=== PATIENT | male | born 1955 | race Hispanic/Latino ===

== ENCOUNTER 2018-01-20 09:48 | Emergency (ER) | payer OTHER ==
[~2018-01-20] VITALS: Ht 160 cm; Wt 81.6 kg
[2018-01-20] MEDS ORDERED: SODIUM CHLORIDE 0.9% 1000ML 1,000 ML IV STA (09:58)
[2018-01-20] MEDS ORDERED: ONDANSETRON HCL INJ 2 MG/ML VIAL IV STA (09:58)
[2018-01-20] MEDS ORDERED: CLONIDINE HCL 0.1 MG TAB PO ONE (10:15)
[2018-01-20 10:21] LABS: BASOPHILS # (AUTO) 0.1 (0.0-0.1); BASOPHILS % 1.3 % (0.0-1.0); EOSINOPHILS # (AUTO) 0.1 (0.0-0.4); EOSINOPHILS % 1.2 % (0.0-6.0); HEMATOCRIT 48.9 % (38.2-49.6); HEMOGLOBIN 17.1 g/dL (14.0-18.0); LYMPHOCYTES # (AUTO) 1.7 (1.0-3.2); MEAN CORPUSCULAR HEMOGLOBIN 30.1 pg (28-32); MEAN CORPUSCULAR VOLUME 85.9 fL (81-99); MONOCYTES # (AUTO) 0.7 (0.2-0.8); MONOCYTES % 8.3 % (4.4-11.3); NEUTROPHILS # (AUTO) 5.8 (2.1-6.9); NEUTROPHILS % 68.5 % (38.7-80.0); PLATELET COUNT 322 x10e3/uL (140-360); RED BLOOD COUNT 5.69 x10e6/uL (4.3-5.7); RED CELL DISTRIBUTION WIDTH 12.8 % (11.7-14.4)
[2018-01-20 10:38] LABS: ALBUMIN/GLOBULIN RATIO 0.9 (0.8-2.0); ANION GAP 12.3 mmol/L (8-16); CALCIUM 9.4 mg/dL (8.4-10.2); CREATININE, SERUM 1.8 mg/dL (0.72-1.25); POTASSIUM 4.3 mmol/L (3.5-5.1)
[2018-01-20 10:45] LABS: CLARITY,URINE SL CLOUDY (CLEAR); COLOR,URINE YELLOW (YELLOW)
[2018-01-20 10:46] LABS: BILIRUBIN,URINE NEGATIVE (NEGATIVE); KETONES,URINE NEGATIVE (NEGATIVE); LEUKOCYTE ESTERASE ,URINE NEGATIVE (NEGATIVE); NITRITE,URINE NEGATIVE (NEGATIVE); PROTEIN,URINE DIPSTICK 3+ (NEGATIVE); URINE UROBILINOGEN 0.2 mg/dL (0.2 - 1)
[2018-01-20 10:51] LABS: AMORPHOUS SEDIMENT,URINE RARE (FEW)
[2018-01-20 10:53] LABS: BACTERIA,URINE RARE /HPF; EPITHELIAL CELLS,URINE RARE /LPF; RBC,URINE 0-5 /HPF (0-5)
--- NOTE | 2018-01-20 13:59 | Diagnostic Imaging Report ---
PROCEDURE:US GALLBLADDER COMPARISON:None. INDICATIONS:ABDOMEN PAIN TECHNIQUE: Leiva-scale and color doppler transverse and longitudinal images of the right upper quadrant of the abdomen were obtained. FINDINGS: Exam limited by overlying bowel gas. Liver: 15.0 cm in right mid-clavicular line. Increased echogenicity. No masses. Main portal vein: 1.1 cm, hepatopetal flow Gallbladder: Echogenic, mobile material is noted in the gallbladder lumen, which does not show posterior acoustic shadowing, likely representing a small amount of sludge.. No wall thickening, or pericholecystic fluid. Common Bile Duct: Obscured by overlying bowel gas Sonographic Morrissey's sign: Negative Right kidney: Obscured by overlying bowel gas. Pancreas: Visualized portions of the neck and proximal body are unremarkable. Inferior vena cava: Obscured by overlying bowel gas Aorta: Obscured by overlying bowel gas Ascites: None in the right upper quadrant of the abdomen. CONCLUSION: 1. Exam limited by overlying bowel gas. 2. Findings in the gallbladder likely represents small amount of sludge. No definite echogenic stones are identified. No sonographic evidence of acute cholecystitis. 3. Diffuse hepatic steatosis. No focal lesions. Lamine Starks M.D. Dictated by: Lamien Starks M.D. on 01/20/2018 at 13:59 Electronically approved by: Lamine Starks M.D. on 01/20/2018 at 13:59
== END 2018-01-20 14:50 | disposition home or self-care (01) ==
LOC: ER 09:48
DX: K52.9 Noninfective gastroenteritis and colitis, unspecified (principal); R11.2 Nausea with vomiting, unspecified; R19.7 Diarrhea, unspecified
CPT/HCPCS: 36415; 76705; 80053; 81001; 83690; 85025; 93005; 99284; J2405; J7030

== ENCOUNTER 2018-07-10 14:41 | Observation (INO) | payer OTHER ==
[~2018-07-10] VITALS: Ht 160 cm; Wt 68.9 kg
[2018-07-10 15:36] LABS: BASOPHILS # (AUTO) 0.1 (0.0-0.1); EOSINOPHILS % 0.3 % (0.0-6.0); HEMATOCRIT 45.9 % (38.2-49.6); HEMOGLOBIN 16.1 g/dL (14.0-18.0); LYMPHOCYTES # (AUTO) 1.3 (1.0-3.2); LYMPHOCYTES % 11.9 % (18.0-39.1); MEAN CORPUSCULAR HEMOGLOBIN 30.3 pg (28-32); MEAN CORPUSCULAR HGB CONC 35.1 g/dL (31-35); MEAN CORPUSCULAR VOLUME 86.3 fL (81-99); MONOCYTES # (AUTO) 0.6 (0.2-0.8); MONOCYTES % 5.3 % (4.4-11.3); NEUTROPHILS # (AUTO) 8.6 (2.1-6.9); NEUTROPHILS % 80.8 % (38.7-80.0); PLATELET COUNT 313 x10e3/uL (140-360); RED BLOOD COUNT 5.32 x10e6/uL (4.3-5.7); RED CELL DISTRIBUTION WIDTH 12.3 % (11.7-14.4)
[2018-07-10 15:54] LABS: ALBUMIN/GLOBULIN RATIO 0.9 (0.8-2.0); ANION GAP 19.7 mmol/L (8-16); CALCIUM 9.8 mg/dL (8.4-10.2); CREATININE, SERUM 2.74 mg/dL (0.72-1.25); POTASSIUM 4.7 mmol/L (3.5-5.1)
[2018-07-10 16:00] LABS: CREATINE KINASE MB 2.7 ng/mL (0-5.0); INR 0.93; PROTHROMBIN TIME 13.3 seconds (11.9-14.5)
[2018-07-10 16:01] LABS: PARTIAL THROMBOPLASTIN TIME 26.7 seconds (23.8-35.5)
--- NOTE | 2018-07-10 16:03 | Diagnostic Imaging Report ---
Examination: Single AP view of the chest. COMPARISON: None. INDICATION: Chest pain DISCUSSION: Lines/tubes: None. Lungs: The lungs are well inflated and clear. No pneumonia or pulmonary edema. Pleura: No pleural effusion or pneumothorax. Heart and mediastinum: The heart and the mediastinum are unremarkable. Bones and soft tissues: No acute bony abnormalities. IMPRESSION: 1. No acute cardiopulmonary abnormalities. Signed by: Dr. Faustino Wright M.D. on 07/10/2018 4:00 PM
--- NOTE | 2018-07-10 16:08 | Diagnostic Imaging Report ---
EXAMINATION: Head CT HISTORY: Dizziness chest pain COMPARISON: None. TECHNIQUE: Multidetector axial images were obtained without contrast from the foramen magnum to the vertex . The images were reconstructed using brain and bone algorithms. Thin section brain images were reformatted into coronal and sagittal planes. Image quality: Motion/streaking artifact limits the evaluation of the skull base and posterior cranial fossa. Dose modulation, iterative reconstruction, and/or weight based adjustment of the mA/kV was utilized to reduce the radiation dose to as low as reasonably achievable. FINDINGS: Parenchyma: 1. Few scattered white matter hypodensities, most likely nonspecific chronic microvascular ischemic changes. Focal prominent hypodensity in the left frontal deep white matter represents an age indeterminate lacunar infarct. 2. Additional small age indeterminate likely chronic lacunar infarcts are seen in the genu of the left internal capsule and bilateral putamen. 3. No mass or hemorrhage. No CT evidence of acute territorial vascular insult. Extra-axial spaces:No abnormal density. No extra-axial fluid collections Brain volume: Normal for age. Ventricles: No hydrocephalus or displacement. Arteries: No density suggestive of thrombus. Dural sinuses: No abnormal density. Extra-axial spaces: No abnormal density. Foramen magnum: No mass, Chiari malformation, or basilar invagination. Sella: No obvious mass. Paranasal/mastoid sinuses: Hypo pneumatization, sclerosis and opacification of the right middle ear and mastoid air cells, likely the sequela from chronic inflammatory process. Otherwise clear. Skull/Scalp: No lytic or blastic lesions. No fractures. IMPRESSION: 1. No acute intracranial hemorrhage. 2. Age indeterminate left frontal lacunar infarct. 3. Mild chronic microvascular ischemic changes and small chronic lacunar infarcts as detailed above. Signed by: Dr. Lesly Brasher M.D. on 07/10/2018 4:04 PM
[2018-07-10] MEDS ORDERED: SODIUM CHLORIDE 0.9% 1000ML 1,000 ML ONE (16:09)
[2018-07-10] MEDS ORDERED: INSULIN REGULAR, HUMAN 100 UNIT/1 ML 3ML VIAL IV ONE (16:15)
[2018-07-10] MEDS ORDERED: SODIUM CHLORIDE 0.9% 1000ML 1,000 ML IV ONE (16:15)
[2018-07-10 17:25] LABS: BILIRUBIN,URINE NEGATIVE (NEGATIVE); CLARITY,URINE SL CLOUDY (CLEAR); COLOR,URINE YELLOW (YELLOW); KETONES,URINE NEGATIVE (NEGATIVE); LEUKOCYTE ESTERASE ,URINE NEGATIVE (NEGATIVE); NITRITE,URINE NEGATIVE (NEGATIVE); PROTEIN,URINE DIPSTICK TRACE (NEGATIVE); URINE UROBILINOGEN 0.2 mg/dL (0.2 - 1)
[2018-07-10] MEDS ORDERED: SODIUM CHLORIDE FLUSH 10 ML SYR INJ PRN (19:45)
[2018-07-10] MEDS ORDERED: DEXTROSE 50% SYRINGE 50 ML IV PRN (19:45)
[2018-07-10] MEDS ORDERED: ONDANSETRON HCL INJ 2 MG/ML VIAL IV PRN (19:45)
[2018-07-10] MEDS ORDERED: SODIUM CHLORIDE 0.9% 1000ML 1,000 ML IV SCH (19:45)
[2018-07-10 20:30] VITALS: BP 163/99
[2018-07-10 20:45] VITALS: BP 163/99
[2018-07-10 20:57] VITALS: BP 163/99
[2018-07-10] MEDS: FAMOTIDINE 20 MG/2 ML VIAL IV SCH (22:07)
[2018-07-10] MEDS: INSULIN REGULAR, HUMAN 100 UNIT/1 ML 3ML VIAL SQ SCH (22:16)
[2018-07-11] VITALS: BP 151/88
[2018-07-11 04:00] VITALS: BP 157/97
[2018-07-11 05:28] LABS: BASOPHILS # (AUTO) 0.1 (0.0-0.1); BASOPHILS % 1.4 % (0.0-1.0); EOSINOPHILS # (AUTO) 0.2 (0.0-0.4); EOSINOPHILS % 2.1 % (0.0-6.0); HEMATOCRIT 40.1 % (38.2-49.6); LYMPHOCYTES # (AUTO) 2.4 (1.0-3.2); LYMPHOCYTES % 30.8 % (18.0-39.1); MEAN CORPUSCULAR HEMOGLOBIN 30.8 pg (28-32); MEAN CORPUSCULAR HGB CONC 34.9 g/dL (31-35); MEAN CORPUSCULAR VOLUME 88.1 fL (81-99); MONOCYTES # (AUTO) 0.7 (0.2-0.8); MONOCYTES % 9.4 % (4.4-11.3); NEUTROPHILS # (AUTO) 4.3 (2.1-6.9); NEUTROPHILS % 55.7 % (38.7-80.0); PLATELET COUNT 256 x10e3/uL (140-360); RED BLOOD COUNT 4.55 x10e6/uL (4.3-5.7); RED CELL DISTRIBUTION WIDTH 12.5 % (11.7-14.4)
[2018-07-11 06:08] LABS: ALANINE AMINOTRANSFERASE 21 IU/L (0-55); ALBUMIN 3.2 g/dL (3.5-5.0); ALBUMIN/GLOBULIN RATIO 0.9 (0.8-2.0); ALKALINE PHOSPHATASE 72 IU/L (40-150); ANION GAP 14.9 mmol/L (8-16); BLOOD UREA NITROGEN 23 mg/dL (7-26); BUN/CREATININE RATIO 13 (6-25); CALCIUM 8.8 mg/dL (8.4-10.2); CARBON DIOXIDE 23 mmol/L (22-29); CHLORIDE 105 mmol/L (98-107); CHOL/HDL RATIO 8.4 (3.9-4.7); CHOLESTEROL 226 MD/DL (0-199); CREATINE KINASE 185 IU/L (30-200); EST GLOMERULAR FILTRATION RATE 38 ML/MIN (60-); GLUCOSE 177 mg/dL (74-118); HDL CHOLESTEROL 27 MG/DL (40-60); POTASSIUM 3.9 mmol/L (3.5-5.1); SODIUM 139 mmol/L (136-145); TRIGLYCERIDES 599 MG/DL (0-149)
[2018-07-11] MEDS: INSULIN REGULAR, HUMAN 100 UNIT/1 ML 3ML VIAL SQ SCH ×2 (07:30→12:02)
[2018-07-11 07:32] VITALS: BP 188/107
[2018-07-11] MEDS ORDERED: HYDRALAZINE HCL 20 MG/ML VIAL IV PRN (08:00)
[2018-07-11] MEDS: FAMOTIDINE 20 MG/2 ML VIAL IV SCH (08:21)
--- NOTE | 2018-07-11 08:38 | Consultation ---
DATE OF CONSULTATION: July 10, 2018 CARDIOLOGY CONSULTATION REASON FOR CONSULTATION: Chest pain. CONSULTING PHYSICIAN: Dr. Anderson HPI: This is a 63-year-old male that presented with chest pain. According to the patient, for the last 2 days he has been having chest pain that felt like tightness on a scale of 4/10 located at the center of his chest. He stated that the pain comes and goes, but got worse yesterday accompanied with shortness of breath that he decided to come into the emergency room for evaluation. He stated for the last 10 years he was diagnosed with hypertension and diabetes. He finished the medication that was prescribed for him for 90 days, and stopped taking it then. He stated for the last 10 years he has been using [id number] garlic to treat his diabetes. He denied any palpitations, any headache, any diaphoresis. Troponin times 3 was negative. EKG showed normal sinus rhythm with no S/T abnormalities. He also stated he smoked 1-1/2 packs of cigarettes daily. PAST MEDICAL HISTORY: Diabetes and hypertension, and ulcerative colitis. FAMILY HISTORY: Positive for CAD. SOCIAL HISTORY: He lives at home with the . No drinking. Smokes 1-1/2 packs of cigarettes daily. MEDICATIONS: He was on garlic over the counter. ALLERGIES: HE IS NOT ALLERGIC TO ANY MEDICATIONS. REVIEW OF SYSTEMS: Negative except as mentioned above. PHYSICAL EXAMINATION VITAL SIGNS: Temperature 97, heart rate 74, blood pressure 188/107, respirations 18, oxygen saturation 99% on room air. GENERAL: He is awake, alert and oriented times 3. HEENT: Mucous membranes moist. NECK: Supple. LUNGS: Bilateral clear to auscultation. CARDIOVASCULAR: S1 and S2 present. ABDOMEN: Soft. NEUROLOGICAL: Intact. EXTREMITIES: With no edema. LABS: Sodium 139, potassium 3.9, chloride 105, CO2 23, BUN 23, creatinine 1.8, glucose 724. White blood cells 7.72, hemoglobin 14, hematocrit 40.1, and platelets 256,000. PT 13.3, PTT 26.7 and INR 0.93. IMPRESSION 1. Chest pain. 2. Diabetes. 3. Hypertension. 4. Tobacco abuse. 5. Acute renal insufficiency. ASSESSMENT AND PLAN 1. On admission, his blood sugar was 724. Could be the reason why he was having the chest pain. 2. His troponin times 3 was negative. 3. Will go ahead and get an echocardiogram to assess the LV and the valve function. 4. Will check lipid panel. Will start him on low-dose statin and beta saul. 5. Consult on tobacco cessation. Possible outpatient stress test if the symptoms continue. 6. Will go ahead and avoid DOMINICK inhibitor due to the acute renal insufficiency. Further cardiac workup pending clinical course. Thank you for this consultation. DICTATED BY FELICITAS FISCHER NP Job#: [id number] AVINASH
[2018-07-11] MEDS ORDERED: METOPROLOL TARTRATE 25 MG TAB PO SCH (09:00)
[2018-07-11] MEDS ORDERED: ASPIRIN 81 MG ENTERIC COATED PO SCH (09:00)
--- NOTE | 2018-07-11 09:14 | Discharge Summary ---
PCP: Dr. Connor Pizano DISCHARGE MEDICATIONS 1. Nifedipine XL 30 mg daily. 2. Losartan 25 mg daily. 3. Pravastatin 20 mg at bedtime. 4. Glucotrol XL 5 mg daily. 5. Treshiba FlexTouch pen 100 units and 30 units subcutaneous at bedtime. Flex needles, glucometer, test strips, and lancets. Patient is a 63-year-old male who has not seen his family doctor for many years came in with high blood sugar and polyuria causing some dehydration. Patient is otherwise stable. Chest pain is asymptomatic now. He was seen by Dr. Shaikh. Echocardiogram is done, but he will have a stress test output. He will go home today. Color Dipper consultation for diabetic education, insulin education as well. Patient will be discharged today with the above medications. Job#: [id number] AVINASH
[2018-07-11] MEDS ORDERED: NIFEDIPINE ER30 M1 PO (09:28)
[2018-07-11] MEDS ORDERED: LOSARTAN POTASS25 MG PO (09:29)
[2018-07-11] MEDS ORDERED: PRAVASTATIN SOD20 MG PO (09:30)
[2018-07-11] MEDS ORDERED: GLUCOTROL XL10 MG PO (09:30)
[2018-07-11] MEDS ORDERED: ASPIR 8181 MG PO (09:33)
--- NOTE | 2018-07-11 09:33 | History and Physical ---
PCP: Dr. Connor Pizano Jr. [employer]ICER: Dr. Rosales Shaikh. CHIEF COMPLAINT: Chest pain, dehydration, polyuria, polydipsia secondary to uncontrolled diabetes. HISTORY OF PRESENT ILLNESS: The patient is a 63-year-old male has not seen his doctor for the past 5 years. He has [facility] doctor, Dr. Connor Pizano Jr., as his family doctor. He does have diabetes, not taking any medication at home. Apparently, he did go for refill. He came in with dehydration secondary to uncontrolled diabetes. Blood sugar was very high, but now improving with insulin treatment. Discussed with the patient at length. He expressed understanding. He needs to see Dr. Jerica Morgan this week. PAST MEDICAL HISTORY: Diabetes type 2, hypertension, dyslipidemia. PAST SURGICAL HISTORY: Noncontributory. SOCIAL HISTORY: Patient is a smoker. He is a social drinker. No recreational drug use. ALLERGIES: NO KNOWN ALLERGY. HOME MEDICATIONS: None. PHYSICAL EXAMINATION: VITAL SIGNS: Temperature is 98. Blood pressure 188/107. Pulse rate 74. Respirations 18. GENERAL: The patient is not in acute distress. He is awake. HEENT: Normocephalic, atraumatic. Sclerae anicteric. NECK: Supple grossly. PULMONARY: Clear. CARDIOVASCULAR: Regular rate and rhythm. ABDOMEN: Soft. Unremarkable. EXTREMITIES: No cyanosis or edema. NEUROLOGIC: No gross focal deficit. LABORATORY: Sodium is 139, potassium 3.9, chloride 105, bicarb 23, BUN 23, creatinine 1.8, glucose 177, previously 700. WBC 7.7, hemoglobin 14, hematocrit 40, platelets 256,000. Triglycerides 599, total cholesterol 226 and LDL is not available. IMPRESSION 1. Uncontrolled diabetes with high blood sugar secondary to noncompliance to medical visit. 2. Dyslipidemia. 3. Dehydration, improving. Dehydration secondary to polyuria secondary to uncontrolled diabetes. PLAN: Tarceva 30 units at night. Start the patient on oral medications. Statin medications. Blood pressure control. Glucometer test strips. The patient is able to go home today. He is instructed to follow up with Dr. Jerica Morgan this week. I also will give the patient follow up with Dr. Shaikh as an outpatient for stress test. He will also see a engineering intern and insulin education prior to his discharge. Job#: [id number] GE
[2018-07-11 11:00] VITALS: BP 188/107
[2018-07-11 11:01] VITALS: BP 188/107
[2018-07-11 13:43] LABS: CREATINE KINASE MB 2.6 ng/mL (0-5.0)
[2018-07-11 13:46] VITALS: BP 151/89
[2018-07-11] MEDS ORDERED: ATORVASTATIN 40 MG TAB PO SCH (21:00)
== END 2018-07-11 15:27 | disposition home or self-care (01) ==
LOC: ER 14:41 → ERHOLD 20:11 → MED/SURG 20:32
PROVIDERS: ADMIT Internal Medicine; ATTEND Internal Medicine
DX: R07.89 Other chest pain (principal); N17.9 Acute kidney failure, unspecified; E11.65 Type 2 diabetes mellitus with hyperglycemia; I10 Essential (primary) hypertension; Z83.3 Family history of diabetes mellitus; Z82.49 Family history of ischemic heart disease and other diseases of the circulatory system; E87.1 Hypo-osmolality and hyponatremia; E87.8 Other disorders of electrolyte and fluid balance, not elsewhere classified; Z72.0 Tobacco use; E86.0 Dehydration; E78.5 Hyperlipidemia, unspecified; Z91.19 Patient's noncompliance with other medical treatment and regimen
CPT/HCPCS: 36415 ×2; 70450; 71045; 80053 ×2; 80061; 81001; 82550 ×2; 82553 ×2; 82948 ×2; 84484 ×2; 85025 ×2; 85610; 85730; 93005; 93306; 96372; 99284; G0378 ×2; J0360; J7030 ×2

== ENCOUNTER 2019-03-29 20:11 | Observation (INO) | payer OTHER ==
[~2019-03-29] VITALS: Ht 160 cm; Wt 68.1 kg
[~2019-03-29 20:11] MED LIST: ASPIR 8181 MG PO; GLUCOTROL XL10 MG PO; LOSARTAN POTASS25 MG PO; NIFEDIPINE ER30 M1 PO; PRAVASTATIN SOD20 MG PO
[2019-03-29] MEDS ORDERED: GLIPIZIDE ER5 MG PO (20:24)
[2019-03-29 20:34] LABS: BASOPHILS # (AUTO) 0.1 (0.0-0.1); BASOPHILS % 0.8 % (0.0-1.0); EOSINOPHILS # (AUTO) 0.1 (0.0-0.4); EOSINOPHILS % 0.5 % (0.0-6.0); HEMOGLOBIN 15.7 g/dL (14.0-18.0); LYMPHOCYTES # (AUTO) 1.7 (1.0-3.2); LYMPHOCYTES % 11.7 % (18.0-39.1); MEAN CORPUSCULAR HGB CONC 34.9 g/dL (31-35); MONOCYTES # (AUTO) 1.1 (0.2-0.8); MONOCYTES % 7.1 % (4.4-11.3); NEUTROPHILS # (AUTO) 11.8 (2.1-6.9); NEUTROPHILS % 79.4 % (38.7-80.0); PLATELET COUNT 300 x10e3/uL (140-360); RED BLOOD COUNT 5.23 x10e6/uL (4.3-5.7); RED CELL DISTRIBUTION WIDTH 13.3 % (11.7-14.4)
[2019-03-29 20:51] LABS: INR 0.93
[2019-03-29 20:56] LABS: ALBUMIN 3.9 g/dL (3.5-5.0); ANION GAP 15.6 mmol/L (8-16); CALCIUM 9.6 mg/dL (8.4-10.2); CREATININE, SERUM 1.76 mg/dL (0.72-1.25); POTASSIUM 4.6 mmol/L (3.5-5.1)
--- NOTE | 2019-03-29 20:56 | Diagnostic Imaging Report ---
A single frontal view of the chest. HISTORY: Chest pain COMPARISON: None available. DISCUSSION: Portable technique, limits sensitivity of the exam. Tubes/Lines: None Lungs and pleura: Low lung volumes result in bibasilar vascular crowding, accentuation of the pulmonary interstitial markings, central pulmonary vasculature, and the cardiac silhouette. Allowing for these limitations, the findings are as follows: No evidence of a consolidative pneumonia or pulmonary alveolar edema. No definite pleural effusion or pneumothorax is identified. Heart and mediastinum: The cardiomediastinal silhouette appears unremarkable. Bones and soft tissues: Healed fracture deformity of the left clavicle. IMPRESSION: 1. No acute radiographic abnormality. 2. No significant interval change. Signed by: Dr. Jovon Jewell D.O., M.M.M. on 03/29/2019 8:52 PM
[2019-03-29 21:03] LABS: CREATINE KINASE MB 5.6 ng/mL (0-5.0)
[2019-03-29] MEDS ORDERED: SODIUM CHLORIDE FLUSH 10 ML SYR INJ PRN (21:15)
[2019-03-29] MEDS ORDERED: ONDANSETRON HCL INJ 2MG/ML 2ML 2 MG/ML VIAL IV PRN (21:15)
[2019-03-29] MEDS ORDERED: DEXTROSE 50% SYRINGE 50 ML IV PRN (21:15)
[2019-03-29] MEDS: FAMOTIDINE 20 MG/2 ML VIAL IV SCH (22:25)
[2019-03-29] MEDS: SODIUM CHLORIDE 0.9% 1000ML 1,000 ML IV SCH (22:25)
--- NOTE | 2019-03-29 23:05 | NUR ---
PT ARRIVED BY STRETCHER TO ROOM 102, PT IS AAOX3, RR EVEN AND NON-LABORED, ON RA. PT REPORTS PAIN TO (L) LOWER ANTERIOR CHEST, AREA IS NON REMARKABLE. CASSEROLE PREPARER NUMBER 4, PER TOP DYEING MACHINE LOADER CURRENT RHYTHM IS NSR. PT ASSISTED TO AMBULATE TO HOSPITAL BED. ORIENTED PT TO HOSPITAL ROOM, CALL LIGHT, PHONE, BED CONTROLS AND LIGHTS. LEFT PT LAYING SEMI FOWLERS IN BED, BED IN LOW LOCKED POSITION, SIDE RAILS UPX2, CALL LIGHT AND PHONE WITHIN REACH.
[2019-03-29 23:30] VITALS: BP 172/103
[2019-03-29] MEDS ORDERED: HYDROCODONE/APAP 5MG-325MG TAB PO PRN (23:30)
--- NOTE | 2019-03-29 23:31 | NUR ---
SPOKE WITH MD MARIANO CONCERNING PT REPORTS OF 10/10 PAIN TO (L) LOWER CHEST AND CURRENT EVERYDAY SMOKER. NEW ORDERS RECEIVED.
[2019-03-30] VITALS: BP 172/103
[2019-03-30] MEDS ORDERED: NICOTINE 21 MG/EA PATCH TOP SCH
[2019-03-30 04:00] VITALS: BP 144/98
[2019-03-30 05:22] LABS: CREATINE KINASE 405 IU/L (30-200)
[2019-03-30 05:46] LABS: BASOPHILS # (AUTO) 0.1 (0.0-0.1); EOSINOPHILS # (AUTO) 0.2 (0.0-0.4); EOSINOPHILS % 2.1 % (0.0-6.0); HEMATOCRIT 42.8 % (38.2-49.6); HEMOGLOBIN 14.1 g/dL (14.0-18.0); LYMPHOCYTES # (AUTO) 1.7 (1.0-3.2); LYMPHOCYTES % 16.9 % (18.0-39.1); MEAN CORPUSCULAR HEMOGLOBIN 29.4 pg (28-32); MEAN CORPUSCULAR HGB CONC 32.9 g/dL (31-35); MEAN CORPUSCULAR VOLUME 89.2 fL (81-99); MONOCYTES # (AUTO) 0.8 (0.2-0.8); MONOCYTES % 8.6 % (4.4-11.3); NEUTROPHILS # (AUTO) 6.9 (2.1-6.9); NEUTROPHILS % 70.9 % (38.7-80.0); PLATELET COUNT 249 x10e3/uL (140-360); RED CELL DISTRIBUTION WIDTH 13.4 % (11.7-14.4)
[2019-03-30 06:00] LABS: ALBUMIN 3.1 g/dL (3.5-5.0); ALBUMIN/GLOBULIN RATIO 0.9 (0.8-2.0); ANION GAP 11.5 mmol/L (8-16); CALCIUM 8.8 mg/dL (8.4-10.2); CHOL/HDL RATIO 6.3 (3.9-4.7); CREATININE, SERUM 1.55 mg/dL (0.72-1.25); POTASSIUM 3.5 mmol/L (3.5-5.1)
--- NOTE | 2019-03-30 07:00 | NUR ---
RECEIVED PT LYING IN BED WITH EYES OPEN AND tv ON. RESP EVEN AND UNLABORED, DENIES PAIN AT THIS TIME. CALL LIGHT WITHIN REACH.
[2019-03-30] MEDS ORDERED: INSULIN REGULAR, HUMAN 100 UNIT/1 ML 3ML VIAL SQ SCH (07:30)
[2019-03-30] MEDS: SODIUM CHLORIDE 0.9% 1000ML 1,000 ML IV SCH (07:31)
[2019-03-30 07:50] VITALS: BP 148/104
[2019-03-30] MEDS: FAMOTIDINE 20 MG/2 ML VIAL IV SCH (08:07)
[2019-03-30 08:30] VITALS: BP 148/94
[2019-03-30] MEDS ORDERED: ASPIRIN 81 MG ENTERIC COATED PO SCH (09:00)
--- NOTE | 2019-03-30 10:05 | NUR ---
PATIENT ESCORTED TO ER EXIT PATIENT STATES HE PARKED HIS PRIVATE AUTO BY ER EXIT. ALL PERSONAL BELONGINGS, RX AND D/C INSTRUCTIONS IN HAND AT TIME OF D/C.
--- NOTE | 2019-03-30 14:38 | History and Physical ---
The patient placed in observation on March 29, 2019. CHIEF COMPLAINT: Lower chest pain, muscular pain. HISTORY OF PRESENT ILLNESS: A 63 years old male was trying to clean a small area where he had to fit himself between two morrow and he got in, but he could not get out of the area, cleaning between the wall in the small area he had to squeeze himself out and when he did that, there were two wooden morrow that pressed against his chest causing some significant pain because of the small area. The patient went home and when he pressed on his chest, he was having severe pain, he called the ambulance for a checkup and then they brought him to the emergency room for evaluation. The patient was working outside in the hot weather small area cleaning the dust. He came to the emergency room and he was slightly dehydrated, along with that he was having severe muscular chest wall pain, he was placed on observation. His two sets of cardiac enzymes have been negative. The patient is stating that the pain is quite significant when he press on the area where he squeezed through the small area of narrow morrow where he cleaned the debris. PAST MEDICAL HISTORY: Hypertension, diabetes, dyslipidemia. PAST SURGICAL HISTORY: Abdominal tumor removed. SOCIAL HISTORY: The patient does not smoke or use alcohol. No recreational drugs use. ALLERGIES: NO KNOWN ALLERGIES. HOME MEDICATIONS: Glipizide, losartan, and pravastatin. REVIEW OF SYSTEMS: Chest wall pain. No radiating pain. No nausea. No vomiting. PHYSICAL EXAMINATION: VITAL SIGNS: Temperature is 97, blood pressure 148/104, pulse rate 64, respirations 18. GENERAL: The patient is not in acute distress. He is awake. HEENT: Normocephalic, atraumatic. Anicteric. NECK: Supple grossly. PULMONARY: Diminished breath sounds without any wheezing or rales. CARDIOVASCULAR: Regular rate and rhythm. ABDOMEN: Soft, nontender, nondistention. EXTREMITIES: No cyanosis or edema. NEUROLOGIC: No focal deficit. MUSCULOSKELETAL: On palpation to the anterior wall below the upper chest area near the upper abdominal area where the xiphoid is, there is significant pain on palpation. LABORATORY DATA: Sodium is 133, potassium 3.5, chloride 103, bicarb 22, BUN 21, creatinine 1.5, glucose 138. WBC is 9.8, hemoglobin 14, hematocrit 42.8, platelets 249. Troponin I is negative. IMPRESSION: Chest wall pain and contusion most likely from squeezing through a narrow area, where his chest pressed against the wooden wall where the patient was trying to clean the debris inside a small area. PLAN: Continue with home medication. We will give the patient NSAID, Mobic 7.5 mg twice a day as needed for chest wall pain. Advised the patient to go ahead and put an ice pack in the area of the pain. He will follow up with his family doctor if any further symptoms. MD THONY Pitt/BASHIR /[id number]
--- NOTE | 2019-03-31 05:01 | Discharge Summary ---
Please review my history and physical. FINAL DIAGNOSES: 1. Chest wall contusion secondary to trauma. 2. Noncardiac chest pain. HOSPITAL COURSE: Please review my history and physical. The patient's chest pain is palpable to the area below the upper chest area in the xiphoid process. The patient was having some trauma, squeezing to a very tight spot, pressure on a chest wall, pain is consistent with musculoskeletal pain. The patient will go home today. Follow up with his family doctor if needed. MD THONY Pitt/MODL /[id number]
== END 2019-03-30 10:00 | disposition home or self-care (01) ==
LOC: ER 20:11 → ERHOLD 21:19 → MED/SURG 23:03
PROVIDERS: ADMIT Internal Medicine; ATTEND Internal Medicine
DX: S20.219A Contusion of unspecified front wall of thorax, initial encounter (principal); R07.89 Other chest pain; I10 Essential (primary) hypertension; E11.9 Type 2 diabetes mellitus without complications; E87.1 Hypo-osmolality and hyponatremia; E86.0 Dehydration; E78.5 Hyperlipidemia, unspecified; F17.210 Nicotine dependence, cigarettes, uncomplicated; Z83.3 Family history of diabetes mellitus; Z82.49 Family history of ischemic heart disease and other diseases of the circulatory system; W23.1XXA Caught, crushed, jammed, or pinched between stationary objects, initial encounter
CPT/HCPCS: 36415; 71045; 80053; 80061; 82550; 82553; 82948; 84484; 85025; 85610; 85730; 93005; 99284; G0378; J7030

== ENCOUNTER 2020-02-18 11:34 | Inpatient (IN) | payer OTHER ==
[~2020-02-18] VITALS: Ht 160 cm; Wt 68.0 kg
[~2020-02-18 11:34] MED LIST changes: +GLIPIZIDE ER5 MG PO
[2020-02-18] MEDS ORDERED: SODIUM CHLORIDE 0.9% 1000ML 1,000 ML IV STA (11:39)
[2020-02-18] MEDS ORDERED: ASPIRIN 81 MG CHEW TAB PO ONE (11:45)
--- NOTE | 2020-02-18 11:59 | Diagnostic Imaging Report ---
CT BRAIN WO HISTORY: Stroke like symptoms COMPARISON: Head CT 07/10/2018 Technique: Noncontrast axial scans were obtained from skull base to the vertex. Coronal and sagittal reconstructions obtained from the axial data. One or more of the following dose reduction techniques were used: Automated exposure control, adjustment of the mA and/or kV according to patient size, and/or utilization of iterative reconstruction technique. DISCUSSION: Scalp/Skull: Unremarkable. Brain sulci: Mildly prominent. Ventricles: Compensatory dilatation. Extra-axial spaces: No masses or fluid collections. Carotid siphon calcifications are present. Parenchyma: Mild bilateral deep white matter hypodensity is likely chronic microvascular ischemic change. An old right striatocapsular lacunar infarct was not present on prior head CT. Old small left striatocapsular and right posterior subinsular lacunar infarcts have not significantly changed. Otherwise, no masses, hemorrhage, or large vascular territory acute infarct. Dural sinuses: No abnormal densities. Sellar/Suprasellar region: Intact. Skull base: The right mastoid air cells are sclerotic. The remaining right mastoid air cells are opacified. Incidental findings: None. IMPRESSION: 1. No acute intracranial abnormalities. 2. Mild supratentorial chronic microvascular ischemic change. 3. An old right striatocapsular lacunar infarct was not present on prior head CT. Old left striatocapsular and right posterior subinsular lacunar infarcts have not significantly changed. 4. Mild generalized cerebral volume loss. Signed by: Dr. Gualberto Hernandez M.D. on 02/18/2020 11:55 AM
[2020-02-18 12:08] LABS: BASOPHILS # (AUTO) 0.1 (0.0-0.1); BASOPHILS % 1.5 % (0.0-1.0); EOSINOPHILS % 0.5 % (0.0-6.0); HEMATOCRIT 46.7 % (38.2-49.6); HEMOGLOBIN 16.2 g/dL (14.0-18.0); LYMPHOCYTES % 15.5 % (18.0-39.1); MEAN CORPUSCULAR HEMOGLOBIN 29.4 pg (28-32); MEAN CORPUSCULAR HGB CONC 34.7 g/dL (31-35); MEAN CORPUSCULAR VOLUME 84.8 fL (81-99); MONOCYTES # (AUTO) 0.5 (0.2-0.8); MONOCYTES % 7.7 % (4.4-11.3); NEUTROPHILS # (AUTO) 4.6 (2.1-6.9); NEUTROPHILS % 74.5 % (38.7-80.0); PLATELET COUNT 280 x10e3/uL (140-360); RED BLOOD COUNT 5.51 x10e6/uL (4.3-5.7); RED CELL DISTRIBUTION WIDTH 12.4 % (11.7-14.4)
[2020-02-18 12:27] LABS: CLARITY,URINE CLEAR (CLEAR); COLOR,URINE YELLOW (YELLOW)
[2020-02-18 12:28] LABS: BILIRUBIN,URINE NEGATIVE (NEGATIVE); KETONES,URINE TRACE (NEGATIVE); LEUKOCYTE ESTERASE ,URINE NEGATIVE (NEGATIVE); NITRITE,URINE NEGATIVE (NEGATIVE); PROTEIN,URINE DIPSTICK 1+ (NEGATIVE); URINE UROBILINOGEN 0.2 mg/dL (0.2 - 1)
[2020-02-18 12:29] LABS: AMPHETAMINES SCREEN,URINE NEGATIVE (NEGATIVE); BENZODIAZEPINES SCREEN,URINE NEGATIVE (NEGATIVE); PHENCYCLIDINE SCREEN,URINE NEGATIVE (NEGATIVE)
[2020-02-18 12:31] LABS: ALBUMIN 4.2 g/dL (3.5-5.0); ALBUMIN/GLOBULIN RATIO 0.9 (0.8-2.0); ANION GAP 16.6 mmol/L (8-16); CALCIUM 9.7 mg/dL (8.4-10.2); CREATININE, SERUM 2.56 mg/dL (0.72-1.25); POTASSIUM 4.6 mmol/L (3.5-5.1)
[2020-02-18 12:37] LABS: CREATINE KINASE MB 9.5 ng/mL (0-5.0)
[2020-02-18 12:43] LABS: BACTERIA,URINE RARE /HPF; EPITHELIAL CELLS,URINE RARE /LPF; RBC,URINE 0-5 /HPF (0-5); WBC,URINE (MAN) 0-5 /HPF (0-5)
[2020-02-18] MEDS ORDERED: SODIUM CHLORIDE 0.9% 1000ML 1,000 ML IV SCH (13:15)
[2020-02-18] MEDS ORDERED: INSULIN REGULAR, HUMAN 100 UNIT/1 ML 3ML VIAL IV STA (13:28)
--- NOTE | 2020-02-18 13:35 | Diagnostic Imaging Report ---
EXAMINATION: CHEST SINGLE (PORTABLE) INDICATION: Altered mental status COMPARISON: Chest are graft 03/29/2019 FINDINGS: LINES/TUBES:None LUNGS:The lungs are well-inflated. No focal consolidation or pulmonary edema. PLEURA:No pleural effusion or pneumothorax. MEDIASTINUM:The cardiomediastinal silhouette appears normal in size and shape. BONES/SOFT TISSUES:No acute osseous injury. ABDOMEN:No free air under the diaphragm. IMPRESSION: No focal pneumonia or pulmonary edema. Signed by: Ashwin Maldonado MD on 02/18/2020 1:32 PM
[2020-02-18] MEDS ORDERED: DEXTROSE 50% SYRINGE 50 ML IV PRN ×2 (14:45)
[2020-02-18] MEDS: SODIUM CHLORIDE 0.9% 1000ML 1,000 ML IV SCH ×2 (15:10→21:28)
[2020-02-18] MEDS ORDERED: INSULIN GLARGINE 100 UNITS/ML VIAL SQ SCH (15:45)
[2020-02-18] MEDS: INSULIN LISPRO 100 UNIT/1 ML 3ML VIAL SQ SCH ×2 (16:30→21:10)
[2020-02-18 16:40] VITALS: BP 155/87
[2020-02-18 20:00] VITALS: BP 132/95
[2020-02-18 20:42] LABS: CREATINE KINASE MB 8.7 ng/mL (0-5.0)
[2020-02-18 20:52] VITALS: BP 151/92
[2020-02-19] VITALS (8 sets, daily range): BP systolic 119–156; BP diastolic 82–106
[2020-02-19] MEDS: SODIUM CHLORIDE 0.9% 1000ML 1,000 ML IV SCH ×3 (05:18→22:43)
[2020-02-19 05:54] LABS: BASOPHILS # (AUTO) 0.1 (0.0-0.1); BASOPHILS % 0.8 % (0.0-1.0); EOSINOPHILS # (AUTO) 0.1 (0.0-0.4); EOSINOPHILS % 1.4 % (0.0-6.0); HEMATOCRIT 40.2 % (38.2-49.6); HEMOGLOBIN 13.9 g/dL (14.0-18.0); LYMPHOCYTES # (AUTO) 1.9 (1.0-3.2); LYMPHOCYTES % 24.8 % (18.0-39.1); MEAN CORPUSCULAR HEMOGLOBIN 29.7 pg (28-32); MEAN CORPUSCULAR HGB CONC 34.6 g/dL (31-35); MEAN CORPUSCULAR VOLUME 85.9 fL (81-99); MONOCYTES # (AUTO) 0.6 (0.2-0.8); NEUTROPHILS % 64.7 % (38.7-80.0); PLATELET COUNT 235 x10e3/uL (140-360); RED BLOOD COUNT 4.68 x10e6/uL (4.3-5.7); RED CELL DISTRIBUTION WIDTH 12.8 % (11.7-14.4)
[2020-02-19] MEDS ORDERED: DIPHENOXYLATE/ATROPINE TAB PO SCH (06:00)
[2020-02-19 06:23] LABS: CREATINE KINASE MB 5.7 ng/mL (0-5.0)
[2020-02-19 06:41] LABS: ALBUMIN/GLOBULIN RATIO 0.8 (0.8-2.0); ANION GAP 11.3 mmol/L (8-16); CALCIUM 8.2 mg/dL (8.4-10.2); CREATININE, SERUM 1.86 mg/dL (0.72-1.25); POTASSIUM 4.3 mmol/L (3.5-5.1)
[2020-02-19] MEDS ORDERED: DEXTROSE 50% SYRINGE 50 ML IV PRN (09:00)
[2020-02-19] MEDS: AMLODIPINE BESYLATE 10 MG TAB PO SCH (09:29)
[2020-02-19] MEDS: HYDRALAZINE HCL 25 MG TAB PO PRN ×2 (09:30→20:50)
[2020-02-19] MEDS ORDERED: NPH, HUMAN INSULIN ISOPHANE 100 UNIT/1 ML 3ML VIAL SQ ONE (10:00)
[2020-02-19] MEDS ORDERED: INSULIN REGULAR, HUMAN 100 UNIT/1 ML 3ML VIAL SQ SCH ×2 (11:30→16:30)
[2020-02-19 15:05] LABS: FREE T4 (FREE THYROXINE) 0.9 ng/dL (0.8-1.8); THYROID STIMULATING HORMONE 2.988 uIU/mL (0.350-4.940)
[2020-02-19] MEDS: INSULIN REGULAR, HUMAN 100 UNIT/1 ML 3ML VIAL SQ SCH (16:30)
[2020-02-19] MEDS ORDERED: NPH, HUMAN INSULIN ISOPHANE 100 UNIT/1 ML 3ML VIAL SQ SCH (16:30)
[2020-02-19] MEDS: INSULIN LISPRO 100 UNIT/1 ML 3ML VIAL SQ SCH ×2 (18:13→20:49)
[2020-02-19] MEDS: NPH, HUMAN INSULIN ISOPHANE 100 UNIT/1 ML 3ML VIAL SQ SCH (18:13)
--- NOTE | 2020-02-19 19:41 | Consultation ---
DATE OF CONSULTATION: Initial Nephrology Consultation Report REASON FOR CONSULTATION: Hyponatremia and renal failure. HISTORY OF PRESENT ILLNESS: Mr. Baker is a 64-year-old male with longstanding diabetes, hypertension, and chronic kidney disease. He presented to the hospital yesterday. He was found to have had a glucose in excess of 700 and at that time, his serum sodium was also low at 122-123, so I was consulted. The patient at this time feels okay. When the patient presented, his serum creatinine was about 2.5. On looking back at previous records in March of last year, also he was admitted to the hospital that his serum creatinine was ranging between 1.5 and 1.7. Today, his serum creatinine has come down to 1.8. He is receiving IV fluids. PAST MEDICAL HISTORY: 1. Longstanding diabetes. 2. Hypertension. 3. History of dehydration in the past. MEDICATIONS: Amlodipine, hydralazine, and insulin. REVIEW OF SYSTEMS: As per HPI. PHYSICAL EXAMINATION: VITAL SIGNS: Blood pressure 150/106, pulse 78, afebrile. GENERAL: The patient is in no acute distress. HEENT: No increased JVD. CARDIOVASCULAR: Regular rate and rhythm. LUNGS: Clear to auscultation. ABDOMEN: Positive bowel sounds. EXTREMITIES: No edema. No cyanosis or clubbing. LABORATORY RESULTS: Today, sodium is 138, potassium 4.3, chloride 107, bicarbonate 24, BUN and creatinine 21 and 1.8 respectively, and glucose 129. Hemoglobin and hematocrit 14 and 40 respectively. IMPRESSION/PLAN: 1. Chronic kidney disease, stage 3. 2. Pseudohyponatremia. 3. Hyperglycemia. 4. Uncontrolled diabetes. 5. Hypertension. PLAN: The patient when presented had a very high serum glucose in excess of 700, so the low-sodium was actually pseudohyponatremia secondary to hyperglycemia. Now that the serum glucose has corrected, the serum sodium has also corrected. The patient's renal function has improved. Also, the patient had developed acute kidney injury secondary to decrease IV contrast should be avoided. I will follow the patient with you. Thank you, Dr. Fernandez, for this consultation. Ather MD ROBERT Mirza/BASHIR /[id number]
--- NOTE | 2020-02-19 23:07 | Consultation ---
DATE OF CONSULTATION: 02/18/2020 Endocrine Consultation This is a patient of Dr. Fernandez. Thank you very much for referring this patient. HISTORY OF PRESENT ILLNESS: This is a 64-year-old gentleman, who was referred to me for evaluation of uncontrolled diabetes mellitus. The patient is a known diabetic for almost 5 years and has been very noncompliant about taking his medications. He was on oral hypoglycemic initially and has been on insulin, but he has not taken any insulin shots for the last several years because he cannot afford it. The patient came to the hospital with history of extreme dizziness. On further evaluation, his blood sugar was found to be 764 and his anion gap was around 16.6. His BUN and creatinine were elevated at 26 and 2.56, and the sodium was 123. The patient is a chronic smoker and also drinks alcohol. PHYSICAL EXAMINATION: GENERAL: Today, the patient is alert, awake, little bit apprehensive. VITAL SIGNS: His heart rate is around 70, blood pressure is 140/82 mmHg. HEENT: Essentially unremarkable. NECK: Thyroid is palpable. Clinically, he is near euthyroid. CHEST: Bilateral vesicular breathing. No rales. CARDIOVASCULAR: First and second heart sound. There is no third or fourth heart sound. Ejection systolic murmur grade 2/6. 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 CLINICAL IMPRESSION: 1. Diabetes mellitus type 2, uncontrolled with complications. 2. Noncompliance with taking the medications. 3. Acute on chronic renal failure. 4. Hyponatremia. 5. Hypertension. 6. Chronic smoker. 7. Chronic obstructive pulmonary disease. PLAN: At this time is to do hemoglobin A1c, thyroid function test, monitor his blood sugars closely. Since the patient cannot afford the Lantus and Humalog insulin, we will start him on the NPH and regular insulin. The patient also needs extensive diabetic and dietary education and a social service consult. Thanks again for referring this patient. I will be following this patient with you. MD STEVEN Whyte/MODL /[id number]
[2020-02-20] VITALS (9 sets, daily range): BP systolic 127–173; BP diastolic 80–111
[2020-02-20] MEDS: SODIUM CHLORIDE 0.9% 1000ML 1,000 ML IV SCH (05:15)
[2020-02-20 06:02] LABS: ANION GAP 11.3 mmol/L (8-16); CALCIUM 8.2 mg/dL (8.4-10.2); CREATININE, SERUM 1.64 mg/dL (0.72-1.25); POTASSIUM 3.3 mmol/L (3.5-5.1)
[2020-02-20 06:36] LABS: ALBUMIN 2.8 g/dL (3.5-5.0); MAGNESIUM 1.9 MG/DL (1.3-2.1); PHOSPHORUS 2.7 MG/DL (2.3-4.7)
[2020-02-20] MEDS: INSULIN REGULAR, HUMAN 100 UNIT/1 ML 3ML VIAL SQ SCH ×2 (07:30→18:07)
[2020-02-20] MEDS: NPH, HUMAN INSULIN ISOPHANE 100 UNIT/1 ML 3ML VIAL SQ SCH ×2 (07:30→18:07)
[2020-02-20] MEDS: INSULIN LISPRO 100 UNIT/1 ML 3ML VIAL SQ SCH ×4 (07:30→21:45)
[2020-02-20] MEDS: AMLODIPINE BESYLATE 10 MG TAB PO SCH (08:14)
[2020-02-20] MEDS: HYDRALAZINE HCL 25 MG TAB PO PRN (12:18)
[2020-02-20] MEDS ORDERED: POTASSIUM CHLORIDE 20MEQ/100ML 200 ML IV ONE (15:15)
[2020-02-20] MEDS ORDERED: SODIUM CHLORIDE 0.9% 1000ML 1,000 ML ONE (15:21)
[2020-02-20] MEDS ORDERED: INSULIN REGULAR, HUMAN 100 UNIT/1 ML 3ML VIAL SQ SCH (16:30)
[2020-02-20] MEDS: HYDRALAZINE HCL 25 MG TAB PO SCH ×2 (16:55→21:45)
[2020-02-21] VITALS (8 sets, daily range): BP systolic 123–162; BP diastolic 57–92
[2020-02-21] MEDS: INSULIN LISPRO 100 UNIT/1 ML 3ML VIAL SQ SCH ×4 (07:30→21:00)
[2020-02-21] MEDS: INSULIN REGULAR, HUMAN 100 UNIT/1 ML 3ML VIAL SQ SCH ×2 (07:30→16:30)
[2020-02-21] MEDS: NPH, HUMAN INSULIN ISOPHANE 100 UNIT/1 ML 3ML VIAL SQ SCH ×2 (07:30→16:30)
[2020-02-21] MEDS: HYDRALAZINE HCL 25 MG TAB PO SCH ×3 (07:59→21:36)
[2020-02-21] MEDS: AMLODIPINE BESYLATE 10 MG TAB PO SCH (07:59)
[2020-02-21] MEDS: METOPROLOL TARTRATE 25 MG TAB PO SCH ×2 (08:54→16:33)
[2020-02-21 08:59] LABS: ANION GAP 11.1 mmol/L (8-16); CALCIUM 8.3 mg/dL (8.4-10.2); CREATININE, SERUM 1.62 mg/dL (0.72-1.25); POTASSIUM 4.1 mmol/L (3.5-5.1)
[2020-02-22] MEDS ORDERED: ONDANSETRON HCL 4 MG ORAL DISINTEGRATING TAB PO PRN (00:15)
[2020-02-22] MEDS ORDERED: ONDANSETRON HCL INJ 2MG/ML 2ML 2 MG/ML VIAL IV PRN (00:15)
[2020-02-22] MEDS ORDERED: ACETAMINOPHEN 325 MG TAB PO PRN (00:15)
[2020-02-22 00:30] VITALS: BP 119/80
[2020-02-22 04:00] VITALS: BP 121/83
[2020-02-22] MEDS: INSULIN LISPRO 100 UNIT/1 ML 3ML VIAL SQ SCH (07:30)
[2020-02-22 07:55] VITALS: BP 145/85
[2020-02-22 08:02] VITALS: BP 145/85
[2020-02-22] MEDS: METOPROLOL TARTRATE 25 MG TAB PO SCH (08:29)
[2020-02-22] MEDS: HYDRALAZINE HCL 25 MG TAB PO SCH (08:29)
[2020-02-22] MEDS: AMLODIPINE BESYLATE 10 MG TAB PO SCH (08:29)
[2020-02-22] MEDS: NPH, HUMAN INSULIN ISOPHANE 100 UNIT/1 ML 3ML VIAL SQ SCH (08:44)
[2020-02-22] MEDS: INSULIN REGULAR, HUMAN 100 UNIT/1 ML 3ML VIAL SQ SCH (08:45)
[2020-02-22] MEDS ORDERED: NORVASC10 MG PO (10:20)
[2020-02-22] MEDS ORDERED: HYDRALAZINE HC100 MG (10:21)
[2020-02-22] MEDS ORDERED: LOPRESSOR25 MG PO (10:21)
[2020-02-22] MEDS ORDERED: HYDRALAZINE HCL50 MG (10:21)
[2020-02-22] MEDS ORDERED: HUMULIN 70100 UNIT/1 ×2 (10:22→10:23)
[2020-02-22] MEDS ORDERED: REGLAN10 MG PO (10:23)
[2020-02-22] MEDS ORDERED: TRAMADOL HCL100 MG (10:25)
[2020-02-22] MEDS ORDERED: ULTRAM 50MG50 MG PO (10:27)
--- NOTE | 2020-02-23 00:49 | Discharge Summary ---
PRIMARY CARE PHYSICIAN: Connor Fernandez MD CONSULTANTS: 1. Reji Santiago MD. 2. Vincent Abdi MD. FINAL DIAGNOSES: 1. Severe hyperglycemia, blood sugar greater than 700 with glycohemoglobin A1c of 12.1. 2. Severe dehydration associated low sodium level corrected with blood sugar. 3. Acute kidney injury. 4. Diabetes type 2, uncontrolled as mentioned above. 5. Hypertensive urgency. 6. Generalized weakness secondary to multiple factors as mentioned. SUMMARY: The patient is a 64-year-old male, did not take any of his medications. He ran out and did not go see his family physician for over a month, came in with blood sugars over 700. The patient's blood sugar was 764. The patient has glycohemoglobin A1c of 12.1. The patient also when he came in, sodium level was very low at 123, but corrected is normalizing. The patient was given normal saline rehydration. His BUN and creatinine were also elevated as well. The patient's BUN was 26 and creatinine was 2.56. The patient's blood pressure was also quite elevated on admission. The patient's systolic blood pressure was 178/124. The patient given blood pressure medication. Apparently, he stopped everything and was noncompliant. The patient is stable now. He will go home today. Lab work normalizing. Discharge medication as follows: Norvasc 10 mg daily, hydralazine 50 mg q.8h, and Lopressor 25 mg b.i.d. For insulin Humulin 70/30, 35 units subcu q.a.m. a.c. and 25 units subcu q.p.m. a.c. The patient will get three vial with six refills. The patient will have insulin needles, Reglan 5 mg before each meal as needed, and tramadol 50 mg q.6 p.r.n. for pain. The patient is stable, discharged home today. Follow up as an outpatient with his family physician within a week. Connor Fernandez MD JT/MODL /[id number]
== END 2020-02-22 11:10 | disposition home or self-care (01) | DRG 638 ==
LOC: ER 11:34 → ERHOLD 13:02 → MED/SURG 14:55
PROVIDERS: ADMIT Internal Medicine; ATTEND Internal Medicine
DX: E11.65 Type 2 diabetes mellitus with hyperglycemia (principal); N17.9 Acute kidney failure, unspecified; E87.1 Hypo-osmolality and hyponatremia; Z91.19 Patient's noncompliance with other medical treatment and regimen; I12.9 Hypertensive chronic kidney disease with stage 1 through stage 4 chronic kidney disease, or unspecified chronic kidney disease; Z79.4 Long term (current) use of insulin; R63.1 Polydipsia; R35.8 Other polyuria; E11.22 Type 2 diabetes mellitus with diabetic chronic kidney disease; N18.3 Chronic kidney disease, stage 3 (moderate); Z91.14 Patient's other noncompliance with medication regimen; F17.210 Nicotine dependence, cigarettes, uncomplicated; J44.9 Chronic obstructive pulmonary disease, unspecified; E86.0 Dehydration; R53.1 Weakness; I16.0 Hypertensive urgency
CPT/HCPCS: 36415; 70450; 71045; 80048; 80053; 80307; 80320; 81001; 82040; 82140; 82550; 82553; 82948; 83036; 83735; 83880; 84100; 84439; 84443; 84484; 85025; 87635; 93005; 96372; 99284; J1815; J1817; J3480; J7030